=== PATIENT | female | born 1980 | race Caucasian/White ===

== ENCOUNTER → 2020-07-04 10:10 | Outpatient (CLI) | payer BC, SELFPAY ==
[2020-07-04 13:08] LABS: Amphetamine Urine VISTA NEGATIVE (<1000 ng/mL); Barbiturate Urine VISTA NEGATIVE (< 200 ng/mL); Benzodiazepine Urine VISTA NEGATIVE (< 200 ng/mL); Cocaine Urine VISTA NEGATIVE (< 300 ng/mL); Ecstacy Urine VISTA NEGATIVE (< 500 ng/mL); Methadone Urine VISTA NEGATIVE (< 300 ng/mL); PCP Urine VISTA NEGATIVE (< 25 ng/mL); THC Urine VISTA NEGATIVE (< 50 ng/mL); Vista UDS pH Range 7
== END ==
PROVIDERS: Visit Provider Family Medicine
DX: F90.9 Attention-deficit hyperactivity disorder, unspecified type (principal)
CPT/HCPCS: 80307

== ENCOUNTER 2023-03-17 02:24 | Emergency (ER) | payer BC, SELFPAY ==
[2023-03-17 02:26] VITALS: BP 111/70; PULSE 89; RESP 16; TEMP 36.7; O2SAT 100; BMI 23.3
--- NOTE | 2023-03-17 04:01 | EDS_ITS ---
HPI History of Present Illness Chief Complaint: Laceration Informant: patient and spouse/S.O. Narrative Narrative: Patient is a 42-year-old female with no significant past medical history. She reports that her dog got up in the middle the night and pooped in the house. She states she was cleaning it up when she was standing at the sink and felt lightheaded and fell striking her face/chin on the sink and sustaining a laceration. Patient denies any history of bleeding disorder or blood thinner use. She states her tetanus status is up-to-date. She is concerned that she may need sutures based on the trauma and therefore comes in for evaluation [facility] Medical History (Updated 03/17/23 @ 04:[address] Uli Fallon, DO) delivery delivered Home Medications NK 03/17/23 [History Last Taken Unknown] Allergy/AdvReac Type Severity Reaction Status Date / Time hydromorphone [From Dilaudid] Allergy Itching Verified 03/17/23 02:25 morphine Allergy Itching Verified 03/17/23 02:25 Penicillins Allergy Swelling Verified 03/17/23 02:25 Surgical History (Updated 03/17/23 @ 02:26 by Sonya Ramesh) H/O: hysterectomy Social History Smoking Status: Former smoker ROS ROS ED Constitutional Constitutional ED: Denies chills or fever(s) Eyes Eyes: Denies change in vision ENT ENT ED: Reports other Details: Positive facial pain/laceration ; Denies sore throat Cardiovascular Cardiovascular: Denies chest pain Respiratory/Chest Respiratory/Chest: Denies cough or dyspnea Gastrointestinal Gastrointestinal: Denies abdominal pain, diarrhea, nausea or vomiting Genitourinary Genitourinary ED: Denies dysuria Musculoskeletal Musculoskeletal: Denies myalgias or neck pain Integumentary Reports other Details: Positive facial laceration ; Denies rash Neurologic Neurologic: Denies headache(s) Hematologic/Lymphatic Hematologic/Lymphatic: Denies easy bleeding or easy bruising EXAM Physical Exam Const Vital Signs: 03/17/23 02:26 Temperature 98.1 F Temperature Source Temporal Pulse Rate 89 Respiratory Rate 16 Blood Pressure 111/70 Blood Pressure Mean 83 Pulse Ox 100 Positive well nourished and well developed General Appearance ED: well developed HEENT Reports moist mucous membranes HEENT Narrative: Patient has a linear 2 cm subcutaneous layer deep laceration along the right portion of the chin that tracks towards the lip stopping at the vermilion border. There is mild ooze of blood without foreign body noted No signs of depressed or basilar skull fracture No dental fracture noted Eyes PERRL and EOMs intact bilaterally Neck supple Resp normal respiratory effort and clear to auscultation bilaterally Cardio regular rate and regular rhythm Back/Spine Back/Spine Narrative: No bony deformity or step-off of the cervical thoracic or lumbar spine no midline pain with palpation Extremity normal to inspection Neuro oriented x3, CN's II-XII intact bilaterally and no sensory deficits noted Sensorium / Orientation: alert Psych mental status grossly normal Skin Skin Narrative: Laceration to the face as documented above MDM MDM MDM Narrative Medical decision making narrative: Patient presented to the ER awake and alert with stable vitals and no signs of depressed or basilar skull fracture. Differential diagnosis is for facial laceration versus jaw fracture versus dental fracture versus TMJ versus orthostatic syncope. I discussed with patient potential for work-up of the syncopal/near syncopal event. However as she has stable vitals and no significant past medical history and did not feel palpitations the chance for a clinically significant work-up is low and patient does not want any testing performed at this time. There is also concern for jaw fracture versus subarachnoid versus subdural epidural hematoma. However she has no signs of depressed or basilar skull fracture and based on the location of the wound is low risk for these events and therefore he does not want imaging studies ordered. Patient had the wound closed as documented below and he is otherwise safe for discharge Patient had the area cleaned with chlorhexidine. The wound was anesthetized with 7 mL of 2% lidocaine without epinephrine in local fashion. The wound was copiously irrigated with normal saline. Then eleven 6-0 Ethilon sutures were placed in simple interrupted fashion. This brought the wound together good approximation. Patient tolerated the procedure well without complication. History & Record Review Discussion w/independent historian: Patient and Significant other Discharge Plan Triage Chief Complaint: Laceration ED Provider: Uli Fallon Dx/Rx/DC Orders Clinical Impression: Facial laceration Instructions: ED Laceration: All Closures Prescriptions: No Action NK Primary Care Provider: Care Physician,No Primary Referrals: Care Physician,No Primary [Primary Care Provider] - Activity Restrictions/Additional Instructions: Please follow-up with your family doctor or return to the ER in 5 to 7 days for suture removal. If you have any further concerns or you feel like the sutures are becoming infected please return earlier for repeat evaluation Disposition Disposition: Home, Self Care Discharge Date/Time: 03/17/23 04:10
[2023-03-17] MEDS: Lidocaine 2% (20 ml mdv) 20 ML Vial INFILT (04:09)
== END 2023-03-17 04:10 | disposition home or self-care (01) ==
PROVIDERS: Emergency Provider Emergency Medicine; Visit Provider Emergency Medicine
DX: S01.81XA Laceration without foreign body of other part of head, initial encounter (principal); Z87.891 Personal history of nicotine dependence; W01.198A Fall on same level from slipping, tripping and stumbling with subsequent striking against other object, initial encounter
CPT/HCPCS: 12011; 99282